=== PATIENT | female | born 1950 | race Two or more races ===

== ENCOUNTER 2021-11-10 17:49 | Inpatient (IN) | payer OTHER ==
[~2021-11-10] VITALS: Ht 154.9 cm; Wt 58.5 kg
[2021-11-11] MEDS ORDERED: ZESTRIL10 M1 PO (13:06)
[2021-11-11] MEDS ORDERED: PROTONIX40 MG PO (13:07)
[2021-11-11] MEDS ORDERED: LEVO-T75 MCG PO (13:07)
[2021-11-11] MEDS ORDERED: PEPCID AC20 MG PO (13:07)
[2021-11-11] MEDS ORDERED: ZOCOR20 MG PO (13:07)
[2021-11-14] MEDS ORDERED: LUMIGAN2.5 M1 (16:24)
[2021-11-14] MEDS ORDERED: COMBIGAN EYE DRO5 ML (16:24)
[2021-11-17] MEDS ORDERED: ULTRAM50 MG PO (13:52)
[2021-11-17] MEDS ORDERED: LEVSIN/SL0.125 MG SL (13:53)
[2021-11-17] MEDS ORDERED: INTESTINEX680 M1 PO (13:53)
== END 2021-11-17 20:10 | disposition home or self-care (01) | DRG 331 ==
LOC: SURH 11-14 06:05 → O/R 11-14 06:05 → SURH 11-14 10:30
PROVIDERS: ADMIT Surgery; ATTEND Surgery
PROC: 0DBP4ZZ Excision of Rectum, Percutaneous Endoscopic Approach (ICD-10-PCS; 2021-11-14)
PROC: 0DJD8ZZ Inspection of Lower Intestinal Tract, Via Natural or Artificial Opening Endoscopic (ICD-10-PCS; 2021-11-14)
PROC: 0DTN4ZZ Resection of Sigmoid Colon, Percutaneous Endoscopic Approach (ICD-10-PCS; principal; 2021-11-14 14:30)
DX: K57.32 Diverticulitis of large intestine without perforation or abscess without bleeding (principal); R10.9 Unspecified abdominal pain; K59.09 Other constipation; K63.5 Polyp of colon; E03.8 Other specified hypothyroidism; I10 Essential (primary) hypertension; I11.9 Hypertensive heart disease without heart failure; R73.01 Impaired fasting glucose